=== PATIENT | female | born 1980 | race Caucasian/White ===

== ENCOUNTER 2025-05-16 07:08 | Outpatient (CLI) | payer OTHER, SELFPAY ==
--- NOTE | 2025-05-16 08:28 | P.ANES_ITS ---
Anesthesia Charges Start Date/Time Anesthesia Start Date: 05/16/25 Anesthesia Start Time: 08:02 Stop Date/Time Anesthesia Stop Date: 05/16/25 Anesthesia Stop Time: 08:24 Coding CPT Codes CPT Codes: ANES LWR INTST SCR COLSC - 15161 ([id number]) P3 - PATIENT W/SEVERE SYS DISEASE, QK - PARAFFIN PLANT OPERATOR 2-4 CNCRNT ANES PROC, QX - MEN'S GOLF COACH SVC W/ MD MED DIRECTION
--- NOTE | 2025-05-16 08:28 | W.ANESCHARGE ---
Anesthesia Charges Start Date/Time Anesthesia Start Date: 05/16/25 Anesthesia Start Time: 08:02 Stop Date/Time Anesthesia Stop Date: 05/16/25 Anesthesia Stop Time: 08:24 Coding CPT Codes CPT Codes: ANES LWR INTST SCR COLSC - 72540 ([id number]) P3 - PATIENT W/SEVERE SYS DISEASE, QK - CONCRETE MIXER OPERATOR HELPER 2-4 CNCRNT ANES PROC, QX - WAREHOUSE AND RECEIVING SUPERVISOR SVC W/ MD MED DIRECTION
--- NOTE | 2025-05-16 10:05 | P.ANES_ITS ---
Anesthesia Charges Start Date/Time Anesthesia Start Date: 05/16/25 Anesthesia Start Time: 08:02 Stop Date/Time Anesthesia Stop Date: 05/16/25 Anesthesia Stop Time: 08:24 Coding CPT Codes CPT Codes: ANES LWR INTST SCR COLSC - 41111 ([id number]) QK - GEEK SQUAD MANAGER 2-4 CNCRNT ANES PROC, QX - WASTE SALVAGER SVC W/ MED DIRECTION, P3 - PATIENT W/SEVERE SYS DISEASE
--- NOTE | 2025-05-16 10:05 | W.ANESCHARGE ---
Anesthesia Charges Start Date/Time Anesthesia Start Date: 05/16/25 Anesthesia Start Time: 08:02 Stop Date/Time Anesthesia Stop Date: 05/16/25 Anesthesia Stop Time: 08:24 Coding CPT Codes CPT Codes: ANES LWR INTST SCR COLSC - 28894 ([id number]) QK - BEHAVIORAL HEALTH CASE MANAGER 2-4 CNCRNT ANES PROC, QX - SENIOR PORTFOLIO ANALYST SVC W/ MED DIRECTION, P3 - PATIENT W/SEVERE SYS DISEASE
== END 2025-05-16 07:09 | disposition home or self-care (01) ==
PROVIDERS: Visit Provider Internal Medicine Gastroenterology
DX: Z12.11 Encounter for screening for malignant neoplasm of colon (principal)
CPT/HCPCS: 00812; 45378; J2704